=== PATIENT | female | born 1955 | race Caucasian/White ===

== ENCOUNTER → 2019-08-19 | Outpatient (CLI) | payer OTHER ==
[~2019-08-19] MED LIST: CENTTAB47 PO; ESTR625TA PO; FOLI1TAB11 PO; LOSA100T50 PO; PRED25TA PO
[2019-08-19 10:24] LABS: BASO # 0.1 10^3/uL (0.0-0.2); BASO % 1.5 % (0.0-1.0); EOS # 0.3 10^3/uL (0.0-0.5); EOS % 4.8 % (0.0-3.0); HEMATOCRIT 47.4 % (36.0-47.0); HEMOGLOBIN 15.1 g/dl (12.0-15.5); LYMPH # 1.7 10^3/uL (1.5-5.0); LYMPH % 28.1 % (24.0-44.0); MEAN CORPUSCULAR HEMOGLOBIN 28.6 pg (27.0-33.0); MEAN CORPUSCULAR HGB CONC 31.9 g/dl (32.0-36.5); MEAN CORPUSCULAR VOLUME 89.8 fl (80.0-96.0); MONO # 0.4 10^3/uL (0.0-0.8); MONO % 6.9 % (0.0-5.0); NEUTROPHILS # 3.5 10^3/uL (1.5-8.5); NEUTROPHILS % 58.4 % (36.0-66.0); PLATELET COUNT, AUTOMATED 249 10^3/uL (150-450); RED BLOOD COUNT 5.28 10^6/uL (4.00-5.40); WHITE BLOOD COUNT 6.1 10^3/uL (4.0-10.0)
[2019-08-19 10:38] LABS: INR 0.93; PROTHROMBIN TIME 12.2 SECONDS (11.8-14.0)
[2019-08-19 10:47] LABS: ALBUMIN 3.9 GM/DL (3.2-5.2); ALT/SGPT 41 U/L (12-78); BILIRUBIN,TOTAL 0.5 MG/DL (0.2-1.0); BLOOD UREA NITROGEN 19 MG/DL (7-18); CALCIUM LEVEL 9.3 MG/DL (8.8-10.2); CARBON DIOXIDE LEVEL 27 MEQ/L (21-32); CHLORIDE LEVEL 105 MEQ/L (98-107); CREATININE FOR GFR 0.92 MG/DL (0.55-1.30); GLOMERULAR FILTRATION RATE > 60.0 (>45); GLUCOSE, FASTING 99 MG/DL (70-100); IRON (FE) 115 UG/DL (50-170); POTASSIUM SERUM 4.6 MEQ/L (3.5-5.1); SODIUM LEVEL 140 MEQ/L (136-145); TOTAL IRON BINDING CAPACITY 383 UG/DL (250-450); TOTAL PROTEIN 7.3 GM/DL (6.4-8.2)
[2019-08-23 00:06] LABS: ANCA-ATYPICAL <1:20 titer (Neg:<1:20); ANTI-MITOCHONDRIAL ANTIBODY <20.0 Units (0.0-20.0); ANTINUCLEAR ANTIBODIES DIRECT Negative (Negative); CERULOPLASMIN 28.7 mg/dL (19.0-39.0); CYTOPLASMIC NEUTROP AB ANCA-C <1:20 titer (Neg:<1:20); LIVER-KIDNEY MICROSOMAL ABY <20.1 Units (0.0-20.0); PERINUCLEAR AB ANCA-P <1:20 titer (Neg:<1:20)
== END ==
LOC: M LAB 09:14
PROVIDERS: ATTEND Internal Medicine Gastroenterology
DX: R74.8 Abnormal levels of other serum enzymes (principal)

== ENCOUNTER → 2019-08-25 | Outpatient (CLI) | payer OTHER ==
--- NOTE | 2019-08-26 03:35 | REP ---
Clinical: Elevated liver function tests. Technique: Real time loza scale and color evaluation using curved array transducer. Findings: The liver is mildly echogenic with decreased through transmission suggesting fatty infiltration. No focal hepatic lesion identified. Visualized portions of the pancreas are normal. The gallbladder demonstrates small amount of tumefactive sludge and possible 2 mm polyp. No gallbladder wall thickening or pericholecystic fluid is appreciated. No evidence for biliary ductal dilatation and the common bile duct measures 7 mm diameter. The right kidney measures 16.0 x 5.9 x 8.6 cm and includes 11.9 x 8.0 x 12.8 cm cyst with septation and layering debris. Impression: 1. Complex large right renal cyst. 2. Small amount of tumefactive sludge and benign 2 mm gallbladder polyp. Electronically Signed by Estevan Campos MD 08/26/2019 03:27 A
== END ==
LOC: M RAD 08:14
PROVIDERS: ATTEND Internal Medicine Gastroenterology
DX: R74.8 Abnormal levels of other serum enzymes (principal); N28.1 Cyst of kidney, acquired; K82.4 Cholesterolosis of gallbladder; K82.8 Other specified diseases of gallbladder

== ENCOUNTER → 2019-09-01 | Outpatient (CLI) | payer OTHER ==
[~2019-09-01] MED LIST changes: +LIDOCAINE 1% MDV 20ML VIAL As Ordered ONE
[2019-09-01 13:14] VITALS: BP 100/62
--- NOTE | 2019-09-01 17:04 | REP ---
Ultrasound-guided liver biopsy This procedure was performed by Chante GÓMEZ, under the direct supervision of Dr. Andersen. The risks and benefits of the procedure were explained to the patient and informed consent was obtained both verbally and written. Directly prior to the start of the procedure, a formal timeout was done in the procedure room. The left lobe of the liver was localized using ultrasound guidance. The skin was prepped and draped in a sterile fashion. Approximately 24 ml of 1% lidocaine 10 mg/ml was used as a local anesthetic. Using ultrasound guidance a small skin todd was made and a 19/20 gauge coaxial needle biopsy system was inserted and advanced into the liver. 5 core biopsy samples were obtained and sent to the lab. The patient tolerated the procedure well and there were no immediate complications. After the appropriate monitored convalescence the patient was discharged home from the department. Reviewed by RICO Wong 09/01/2019 02:51 P Electronically Signed by Flynn Andersen MD 09/01/2019 04:55 P
== END ==
LOC: M IRPRO 09:25
PROVIDERS: ATTEND Internal Medicine Gastroenterology
DX: K76.0 Fatty (change of) liver, not elsewhere classified (principal)